=== PATIENT | female | born 1945 | race Caucasian/White ===

== ENCOUNTER → 2019-11-19 | Outpatient (CLI) | payer MEDICARE | END | disposition home or self-care (01) | LOC: LAB 18:07 → LAB SHORT 18:07 | DX: R30.0 Dysuria (principal) | CPT/HCPCS: 87077; 87086; 87186 ==

== ENCOUNTER 2019-12-22 08:05 | Inpatient (IN) | payer MEDICARE ==
[~2019-12-22] VITALS: Ht 170.2 cm; Wt 51.3 kg
[2019-12-22] MEDS ORDERED: PRAVASTATIN SOD10 M2 PO (08:29)
[2019-12-22] MEDS ORDERED: Glucophage 850850 MG PO (08:29)
[2019-12-22 08:41] LABS: BASOPHILS ABSOLUTE AUTO 0.06 K/mm3 (0.00-0.23); BASOPHILS PERCENT AUTO 0 % (0-2); EOSINOPHILS ABSOLUTE AUTO 0.04 K/mm3 (0.00-0.68); EOSINOPHILS PERCENT AUTO 0 % (0-6); Hemoglobin 8.6 g/dL (11.5-16.0); IMMATURE GRAN ABSOLUTE AUTO 0.13 K/mm3 (0.00-0.10); IMMATURE GRAN PERCENT AUTO 1 % (0-1); LYMPHOCYTES ABSOLUTE AUTO 0.82 K/mm3 (0.84-5.20); LYMPHOCYTES PERCENT AUTO 5 % (21-46); MONOCYTES PERCENT AUTO 4 % (4-13); Mean Corpuscular HGB 27.8 pg (26.0-34.0); Mean Corpuscular HGB Conc 31.9 g/dL (31.5-36.5); Mean Corpuscular Volume 87 fL (80-100); Mean Platelet Volume 9.1 fL (9.1-12.4); NEUTROPHILS ABSOLUTE AUTO 14.07 K/mm3 (1.96-9.15); NEUTROPHILS PERCENT AUTO 89 % (41-73); Platelet Count 457 K/mm3 (150-400); RDW Coefficient Variation 13.8 % (11.7-14.2); RDW Standard Deviation 44.2 fL (35.1-46.3); Red Blood Cell Count 3.09 M/mm3 (3.80-5.20); White Blood Cell Count 15.82 K/mm3 (4.00-11.30)
[2019-12-22 09:04] LABS: Source, Urine Catheter
[2019-12-22 09:05] LABS: Troponin I <0.015 ng/mL (0.000-0.040)
[2019-12-22 09:06] LABS: Alanine Aminotransfer (ALT/SGP 12 U/L (12-78); Albumin, Blood 2.9 g/dL (3.4-5.0); Albumin/Globulin Ratio 0.8 (0.8-1.8); Alk Phos 64 U/L (50-136); Anion Gap 13 mmol/L (6-16); Aspartate Aminotrans (AST/SGOT 12 U/L (12-37); Bilirubin, Total 1.1 mg/dL (0.1-1.0); Blood Urea Nitrogen 63 mg/dL (8-24); Bun/Creatinine Ratio 11.8 (12.0-20.0); CO2, Blood 19 mmol/L (21-32); Chloride, Blood 102 mmol/L (98-108); Creatinine, Blood 5.32 mg/dL (0.40-1.00); Globulin, Blood 3.7 g/dL (2.2-4.0); Glomerular Filtration Rate 8 (60-); Glucose, Blood 171 mg/dL (70-99); Potassium, Blood 4.2 mmol/L (3.5-5.5); Sodium, Blood 134 mmol/L (136-145); Total Protein, Blood 6.6 g/dL (6.4-8.2)
[2019-12-22 09:09] LABS: Bilirubin, Urine Neg (Neg); Blood, Urine 4+ (Neg); Glucose Qualitative, Urine Neg (Neg); Ketones, Urine 1+ (Neg); Leukocyte Esterase, Urine 3+ (Neg); Nitrite, Urine Neg (Neg); Protein, Urine 3+ (Neg); Urobilinogen, Urine NORM (Normal); pH, Urine 6.5 (5.0-8.0)
[2019-12-22 09:20] LABS: Appearance, Urine Turbid (Clear); Color, Urine Yellow (P-Yellow)
[2019-12-22 09:26] LABS: White Blood Cells, Urine TNTC /hpf (0-5)
[2019-12-22 09:27] LABS: Bacteria Mod /hpf; Squamous Epithelial Cells Not Seen /hpf (Few)
[2019-12-22 12:14] LABS: Adenovirus F 40/41 Not Detected (NOT DETECT); Astrovirus Not Detected (NOT DETECT); Campylobacter Sp Not Detected (NOT DETECT); Cryptosporidium Not Detected (NOT DETECT); Cyclospora Cayetanensis Not Detected (NOT DETECT); E. Coli O157 Not Detected (NOT DETECT); Entamoeba Histolytica Not Detected (NOT DETECT); Enteroaggregative E. coli-EAEC Not Detected (NOT DETECT); Enteropathogenic E. coli-EPEC Not Detected (NOT DETECT); Enterotoxigenic E. coli-ETEC Not Detected (NOT DETECT); Giardia Lamblia Not Detected (NOT DETECT); Norovirus GI/GII Not Detected (NOT DETECT); Plesiomonas Shigelloides Not Detected (NOT DETECT); Rotavirus A Not Detected (NOT DETECT); Salmonella Sp Not Detected (NOT DETECT); Sapovirus Not Detected (NOT DETECT); Shiga Toxin-prod E. coli-STEC Not Detected (NOT DETECT); Shigella/Enteroin E. coli-EIEC Not Detected (NOT DETECT); Vibrio Cholerae Not Detected (NOT DETECT); Vibrio Sp Not Detected (NOT DETECT); Yersinia Enterocolitica Not Detected (NOT DETECT)
[2019-12-22 12:21] LABS: Magnesium, Blood 1.7 mg/dL (1.6-2.4); Phosphorus, Blood 3.7 mg/dL (2.5-4.9); Uric Acid, Blood 9.6 mg/dL (2.6-6.0)
[2019-12-22 12:27] LABS: IMMATURE RETIC FRACTION 10.6 % (2.3-16.0); RETIC HGB EQUIVALENT 30.7 pg (28.20-36.60); RETICULOCYTE ABSOLUTE 0.0282 M/mm3 (0.0200-0.1100); RETICULOCYTE COUNT PERCENT 0.91 % (0.50-2.50)
[2019-12-22 13:06] LABS: Creatinine, Urine Random 30.7 mg/dL (27.00-270.00)
--- NOTE | 2019-12-22 16:55 | NUR ---
NEW ER ADMIT THIS AFTERNOON. SHE IS A/O X4, I ASSIST/SBA TO BED. GAIT WEAK. SHE IS PALE, APPEARS FATIGUED. SHE IS SOMEWHAT AGITATED/DISTAUGHT R/T RESTLESS LEGS, STATE HX OF, STATE ATIVAN IN ER INEFFECTIVE. PRN TYLENOL GIVEN. SCDS PLACED. SHE SEEMS TO HAVE RELIEF. DR REEVES NOTIFIED, STATE PROBABLY R/T DEHYDRATION, ORDER PRN SINEMET. DX NILESH, RENAL CONSULT CALLED TO DR PRASAD ANS SERV. GFR 8. NS INFUSION STARTED/ORDER. TELE PLACED, NSR @ 81/MX. ORDER CT ABD/PELVIS, COMPLETED. FLUIDS PROVIDED, SHE STATE NO APPETITE, SHE HAD SM AMT EMESIS SHORTLY AFTER ARRIVAL, PRN ZOFRAN GIVEN. PT RESTING QUIETLY/SLEEPING @ THIS TIME. VSS.
[2019-12-22 17:11] LABS: Hematocrit 29.8 % (33.0-51.0); Hemoglobin 9.5 g/dL (11.5-16.0)
[2019-12-22 17:33] LABS: Bun/Creatinine Ratio 11.8 (12.0-20.0); Creatinine, Blood 5.33 mg/dL (0.40-1.00); Potassium, Blood 4.3 mmol/L (3.5-5.5)
[2019-12-22 23:06] LABS: Hematocrit 29.2 % (33.0-51.0); Hemoglobin 9.3 g/dL (11.5-16.0)
[2019-12-23 04:52] LABS: BASOPHILS ABSOLUTE AUTO 0.07 K/mm3 (0.00-0.23); BASOPHILS PERCENT AUTO 0 % (0-2); EOSINOPHILS PERCENT AUTO 0 % (0-6); Hematocrit 29.7 % (33.0-51.0); Hemoglobin 9.3 g/dL (11.5-16.0); IMMATURE GRAN ABSOLUTE AUTO 0.15 K/mm3 (0.00-0.10); IMMATURE GRAN PERCENT AUTO 1 % (0-1); LYMPHOCYTES ABSOLUTE AUTO 1.04 K/mm3 (0.84-5.20); LYMPHOCYTES PERCENT AUTO 6 % (21-46); MONOCYTES ABSOLUTE AUTO 1.08 K/mm3 (0.16-1.47); MONOCYTES PERCENT AUTO 6 % (4-13); Mean Corpuscular HGB 27.8 pg (26.0-34.0); Mean Corpuscular HGB Conc 31.3 g/dL (31.5-36.5); Mean Corpuscular Volume 89 fL (80-100); Mean Platelet Volume 9.2 fL (9.1-12.4); NEUTROPHILS ABSOLUTE AUTO 15.32 K/mm3 (1.96-9.15); NEUTROPHILS PERCENT AUTO 87 % (41-73); Platelet Count 488 K/mm3 (150-400); RDW Coefficient Variation 14.1 % (11.7-14.2); RDW Standard Deviation 45.9 fL (35.1-46.3); Red Blood Cell Count 3.35 M/mm3 (3.80-5.20); White Blood Cell Count 17.66 K/mm3 (4.00-11.30)
[2019-12-23 05:13] LABS: Albumin, Blood 2.2 g/dL (3.4-5.0); Albumin/Globulin Ratio 0.6 (0.8-1.8); Bilirubin, Total 1.1 mg/dL (0.1-1.0); Bun/Creatinine Ratio 10.4 (12.0-20.0); Calcium, Blood 8.7 mg/dL (8.5-10.1); Creatinine, Blood 6.17 mg/dL (0.40-1.00); Globulin, Blood 3.7 g/dL (2.2-4.0); Magnesium, Blood 1.8 mg/dL (1.6-2.4); Phosphorus, Blood 5.7 mg/dL (2.5-4.9); Potassium, Blood 4.6 mmol/L (3.5-5.5); Total Protein, Blood 5.9 g/dL (6.4-8.2)
--- NOTE | 2019-12-23 06:33 | NUR ---
SHIFT SUMMARY PT IS A 74 Y/O FEMALE, ADMITTED FOR NILESH AND UTI. SHE IS A&O X 4, PALE-APPEARING. SHE IS ABLE TO AMBULATE WITH ONE PERSON ASSIST. NO COMPLAINTS OF PAIN, NAUSEA OR SOB. VITAL SIGNS STABLE. TELE SHOWED NSR IN THE 80S. PT HAD POSITIVE BLOOD CULTURES DURING THE NIGHT, GRAM NEG BACILLI. PER THE PHARMACIST RENATE, PT'S SCHEDULED ROCEPHIN "SHOULD" COVER. THE HOSPITALIST DR HOANG WAS NOTIFIED, AND THE TIME FOR PT'S IV ANTIBIOTICS WAS MOVED UP TO A FIRST DOSE NOW, AND FURTHER DOSES AT 0900. NO OTHER ACUTE CHANGES IN PT CONDITION NOTED. WILL CONTINUE TO MONITOR AND TREAT PER EMAR UNTIL HAND OFF TO DAY SHIFT RN.
--- NOTE | 2019-12-23 16:05 | NUR ---
PT IS A/OX3, PLEASANT AND COOPERATIVE, THE PT IS UP WITH MINIMAL ASSIST TO THE CHAIR AND BSC, THE PT APPEARS TO BE BREATHING EASILY ON RA, THE PT DENIED ANY PAIN T/O THE SHIFT, THE PT WORKED WITH BOTH THE PHYSICAL AND OCCUPATIONAL THERAPIST TODAY, PT SLEPT FOR MOST OF THE DAY, CALL LIGHT IN REACH, WILL CONTINUE TO MONITOR AND ASSESS FOR CHANGES
--- NOTE | 2019-12-24 00:17 | NUR ---
IV ACCESS PT LOST IV ACCESS AROUND 2029, SEVERAL ATTEMPTS WERE MADE BY POSTULANT TREVOR PAIZ TO GAIN IV ACCESS WITHOUT SUCCESS. PT HAS DECLINED FOR ANY FURTHER ATTEMPTS AT IV PLACEMENT AT THIS TIME. UNABLE TO INFUSE MAINTENANCE FLUIDS. BOTH POSTULANT'S ARE AWARE. PT SCHEDULED FOR NEPHROSTOMY PLACMENT TOMORROW.
--- NOTE | 2019-12-24 04:56 | NUR ---
SHIFT SUMMARY PT HAS RESTED OFF AND ON THIS SHIFT. PT REPORTS THAT HER APPETITE IS IMPROVING SOME. SHE STILL HAS INTERMITTENT EPISODES OF NAUSEA. PT HAS VOIDED ABOUT 200 CC THIS SHIFT. PT HAS DENIED ANY PAIN. PLAN IS FOR NEPHROSTOMY PLACEMENT TODAY. PT HAS BEEN NPO PER ORDERS. PT REMOVED HER IV BY MISTAKE THIS SHIFT. IV ACCESS WAS ATTEMPTED BY PLATING OPERATOR WITHOUT SUCCESS. PT DECLINED ANYMORE ATTEMPTS FOR THE NIGHT. WILL NOTIFY DAY RN FOR CONTINUED FOLLOW UP. POSTIVE BLOOD CX RESULTS CALLED TO THIS RN THIS SHIFT. WAS NOTIFIED WITH NO ADDITIONAL ORDERS PT IS CURRENLTY ON ROCEPHIN. THERE HAVE BEEN OTHER SET OF BLOOD CX DRAWN THOSE RESULTS ARE STILL PENDING AT THIS TIME. NO OTHER CHANGES TO REPORT. BED IN LOWEST POSITION, CALL LIGHT WITHIN REACH. WILL CONTINUE TO MONITOR AND REPORT TO ONCOMING RN.
[2019-12-24 07:16] LABS: BASOPHILS ABSOLUTE AUTO 0.05 K/mm3 (0.00-0.23); BASOPHILS PERCENT AUTO 0 % (0-2); EOSINOPHILS ABSOLUTE AUTO 0.01 K/mm3 (0.00-0.68); EOSINOPHILS PERCENT AUTO 0 % (0-6); Hematocrit 27.2 % (33.0-51.0); Hemoglobin 8.5 g/dL (11.5-16.0); IMMATURE GRAN ABSOLUTE AUTO 0.12 K/mm3 (0.00-0.10); IMMATURE GRAN PERCENT AUTO 1 % (0-1); LYMPHOCYTES ABSOLUTE AUTO 0.83 K/mm3 (0.84-5.20); LYMPHOCYTES PERCENT AUTO 5 % (21-46); MONOCYTES ABSOLUTE AUTO 1.04 K/mm3 (0.16-1.47); MONOCYTES PERCENT AUTO 6 % (4-13); Mean Corpuscular HGB 27.2 pg (26.0-34.0); Mean Corpuscular HGB Conc 31.3 g/dL (31.5-36.5); Mean Corpuscular Volume 87 fL (80-100); Mean Platelet Volume 8.9 fL (9.1-12.4); NEUTROPHILS ABSOLUTE AUTO 15.94 K/mm3 (1.96-9.15); NEUTROPHILS PERCENT AUTO 89 % (41-73); Platelet Count 422 K/mm3 (150-400); RDW Coefficient Variation 14.4 % (11.7-14.2); RDW Standard Deviation 45.2 fL (35.1-46.3); Red Blood Cell Count 3.13 M/mm3 (3.80-5.20); White Blood Cell Count 17.99 K/mm3 (4.00-11.30)
[2019-12-24 07:32] LABS: Albumin, Blood 2.3 g/dL (3.4-5.0); Anion Gap 10 mmol/L (6-16); Blood Urea Nitrogen 70 mg/dL (8-24); Bun/Creatinine Ratio 9.6 (12.0-20.0); CO2, Blood 20 mmol/L (21-32); Calcium, Blood 8.9 mg/dL (8.5-10.1); Chloride, Blood 107 mmol/L (98-108); Creatinine, Blood 7.26 mg/dL (0.40-1.00); Glomerular Filtration Rate 6 (60-); Glucose, Blood 210 mg/dL (70-99); Phosphorus, Blood 4.3 mg/dL (2.5-4.9); Potassium, Blood 4.4 mmol/L (3.5-5.5); Sodium, Blood 137 mmol/L (136-145)
--- NOTE | 2019-12-24 18:28 | NUR ---
PT DOWN FOR NEPHROSTOMY WITH DR NAVAS AT 1130 AND RETURNED AT 1330. ALERT AND ORIENTED. VSS, DENIED ANY PAIN. RESET IVF AND PT TOLERATING ICE. HAVING NAUSEA AFTER ABOUT 30 MIN OF ARRIVAL TO ROOM. MEDICATED WITH ZOFRAN. NEPH TUBE MARKED BLACK SHARPEE, 25CM IESHA SHOWING AT EDGE OF LOWER BANDAGE. REINFORCED WITH MEFIX TAPE. DIAINING PINK TINGED SEMI OPAQUE FLUID. SAFETY PINNED TO GOUN AND GRAVITY OFF BED FOR DRAINAGE.
--- NOTE | 2019-12-24 18:32 | NUR ---
SUMMARY- PT A/O X4- USES CALL LIGHT APPROPRIATELY. HAD NEPHROSTOMY DOUBLE JJ STENT PLACED TODAY WITH DR NAVAS. HAS EATEN VERY LITTE, AND ONLY SIPS OF CLEARS SINCE PROCEDURE. HAS HAD 2 GELATINOUS BM'S TODAY, THE FIRST IN A WEEK ACCORDING TO PT. PT'S NEPH DIAINED 2OOML PINK TINGED, SEMI OPAQUE FLUID. HAVING SEVERE RESTLESS LEG SYNDROME (CHRONIC CONDITION) OTHERWISE DENIES PAIN. MEDICATED WITH SINIMET FOR RLS. HAS IVF INFUSING AT 50ML HR. PT GETS UP FREQ TO BSC, SBA TO VOID, ONLY VOIDS SCANT AMOUNTS OF NONE AT ALL. GETS UP MOSTLTY TO RELEIVE RLS. DR AUSTIN SALAS HERE TO MARLOAL PT 1800- PLAN FOR PELVIC US. WILL REPORT TO ANNE ADAMES
--- NOTE | 2019-12-25 04:13 | NUR ---
SHIFT SUMMARY ASSUMED CARE OF PT AT 1900. PT IS A/OX4, DENIES N/T IN EXTREMITIES, PT IS NONCOMPLIANT WITH SOME MEDICATIONS. HEART SOUNDS REGULAR, TELE SHOWS SINUS @ 83, DENIES CP AT THIS TIME. LUNG SOUNDS CLEAR BUT DIMINISHED, DENIES SOB AT THIS TIME. PT SKIN IS VERY PALE. PT C/O HAVING TO PEE BUT NO URINE IS PRODUCED. PT IS A 1P SBA TO COMMODE, BUT IS VERY WEAK. C/O NEASEA, PHENERGEN ADMINISTERED, PT DIDNT START FEELING BETTER UNTIL 0000. NEPHROSTOMY DRAINING WITH GRAVITY, URINE TEA COLORED BUT CLEAR, OSTOMY COVERED WITH DRESSING. PT C/O RETLESS LEG SYNDROME, HER LEGS WILL KICK WILDLY FOR A FEW SECONDS AND THEN STOP. NO ACUTE EVENTES DURING THE NIGHT, PT SLEPT MOST OF THE NIGHT. CALL LIGHT IN REACH, BED IN LOWEST POSTION, WILL CONTINUE TO MONITOR UNTIL DAYSHIFT NURSE ARRIVES.
[2019-12-25 05:19] LABS: BASOPHILS ABSOLUTE AUTO 0.06 K/mm3 (0.00-0.23); BASOPHILS PERCENT AUTO 0 % (0-2); EOSINOPHILS PERCENT AUTO 0 % (0-6); Hematocrit 25.7 % (33.0-51.0); Hemoglobin 8.2 g/dL (11.5-16.0); IMMATURE GRAN ABSOLUTE AUTO 0.21 K/mm3 (0.00-0.10); IMMATURE GRAN PERCENT AUTO 1 % (0-1); LYMPHOCYTES ABSOLUTE AUTO 0.71 K/mm3 (0.84-5.20); LYMPHOCYTES PERCENT AUTO 4 % (21-46); MONOCYTES PERCENT AUTO 7 % (4-13); Mean Corpuscular HGB 27.8 pg (26.0-34.0); Mean Corpuscular HGB Conc 31.9 g/dL (31.5-36.5); Mean Corpuscular Volume 87 fL (80-100); Mean Platelet Volume 8.9 fL (9.1-12.4); NEUTROPHILS ABSOLUTE AUTO 14.69 K/mm3 (1.96-9.15); NEUTROPHILS PERCENT AUTO 88 % (41-73); Platelet Count 377 K/mm3 (150-400); RDW Coefficient Variation 14.5 % (11.7-14.2); RDW Standard Deviation 46.2 fL (35.1-46.3); Red Blood Cell Count 2.95 M/mm3 (3.80-5.20); White Blood Cell Count 16.77 K/mm3 (4.00-11.30)
[2019-12-25 05:42] LABS: Albumin, Blood 2.1 g/dL (3.4-5.0); Anion Gap 10 mmol/L (6-16); Blood Urea Nitrogen 71 mg/dL (8-24); Bun/Creatinine Ratio 9.6 (12.0-20.0); CO2, Blood 20 mmol/L (21-32); Calcium, Blood 8.4 mg/dL (8.5-10.1); Chloride, Blood 108 mmol/L (98-108); Creatinine, Blood 7.37 mg/dL (0.40-1.00); Glomerular Filtration Rate 6 (60-); Glucose, Blood 180 mg/dL (70-99); Phosphorus, Blood 4.3 mg/dL (2.5-4.9); Potassium, Blood 4.4 mmol/L (3.5-5.5); Sodium, Blood 138 mmol/L (136-145)
[2019-12-25 06:08] LABS: HBSAG SCREEN Negative (Negative); HEP A AB, IGM Negative (Negative); HEP B CORE AB, IGM Negative (Negative); HEP C VIRUS AB <0.1 (0.0-0.9)
[2019-12-25 12:08] LABS: A/G RATIO 1.2 (0.7-1.7); ALBUMIN 2.8 g/dL (2.9-4.4); ALPHA-1-GLOBULIN 0.4 g/dL (0.0-0.4); ALPHA-2-GLOBULIN 0.7 g/dL (0.4-1.0); BETA GLOBULIN 0.6 g/dL (0.7-1.3); GAMMA GLOBULIN 0.7 g/dL (0.4-1.8); GLOBULIN, TOTAL 2.4 g/dL (2.2-3.9); IMMUNOGLOBULIN A, QN, SERUM 209 mg/dL (64-422); IMMUNOGLOBULIN G, QN, SERUM 863 mg/dL (586-1602); IMMUNOGLOBULIN M, QN, SERUM 45 mg/dL (26-217); M-SPIKE Not Observed g/dL (Not Observed); PROTEIN, TOTAL, SERUM 5.2 g/dL (6.0-8.5)
--- NOTE | 2019-12-25 13:11 | NUR ---
Spiritual care visit conducted. Patient is lying in bed and resting but easily awakens to the sound of her name. Patient immediately tells me that she has extreme fatigue and that she has discomfort. Patient then tells me her medical history starting about 3 months ago until the present. She explains about her spiritual beliefs, her family unit complications and her inner turmoil. I listen empathically, reinforce helpful attitudes and practices, normalize patient's experience and provide companionship, pastoral anger control counselor and prayer. Patient responds well and shows signs of catharsis and increased peace. I will continue to remain available to patient and family.
--- NOTE | 2019-12-25 17:13 | NUR ---
SHIFT SUMMARY PT RESTING QUIETLY AT START OF SHIFT. WOKE EASILY FOR CARE. PT TO RADIOLOGY AFTER BREAKFAST THIS AM. THEN SLEPT OFF AND ON UNTIL THE AFTERNOON. DR NAVAS TO SEE PT BEFORE LUNCH. CONSENT SIGNED FOR PERMA CATH PLACEMENT THIS AFTERNOON. PT MADE NPO AT THAT TIME. IVF'S INFUSING PER EMAR. PT WOKE THIS AFTERNOON VERY AGITATED AND IRRITABLE, YELLING OUT THAT SHE WANTED OUT OF HERE. PT NO LONGER WANTED TO HAVE PROCEDURE OR DIALYSIS AND JUST WANTED TO GO HOME. DR MERRITT NOTIFIED OF PT'S DEMANDS. ALCOHOLISM WORKER, SAIRA, WENT IN TO TALK WITH PT AND EDU PT ON CURRENT STATUS W/O DIALYSIS. PT THEN THOUGHT ABOUT THE OPTIONS FOR A WHILE AND CHRG RN RETURNED TO DISCUSS PT'S DECISION. PT AGREED TO HAVE PROCEDURE TO FOLLOW THRU WITH DIALYSIS AT THIS TIME. PT SEEMS TO HAVE SOME DEMENTIA AT TIMES. PT CHANGES HER MIND FREQUENTLY AT TIMES WHEN ASKED QUESTIONS ABOUT CARE OR ASSESSMENTS. PT SEEMS TO UNDERSTAND INFORMATION GIVEN AT THE TIME, BUT SOON FORGETS WHAT IS DISCUSSED. PT REPORTED THAT SHE LIVES ALONE AND ONLY HAS A SISTER AND A NEICE, WHICH BOTH LIVE OUT OF STATE. PT REPORTED THAT HER FRIENDS ARE NOT ANSWERING THE PHONE AND DO NOT KNOW THAT SHE IS IN THE HOSPITAL. PT WAS TO HAVE HAD DIALYSIS AFTER PERMA CATH PLACEMENT TODAY, BUT D/T DELAY OF PROCEDURE, PNEUMATIC TUBE REPAIRER NOTIFIED DR PRASAD. PNEUMATIC TUBE REPAIRER REPORTED THAT PT TO HAVE DIALYSIS TOMORROW, PER DR PRASAD. PT IS CURRENTLY RESTING QUIETLY AWAKE. DENIED FURTHER NEEDS. BED ALARM ON FOR SAFETY, D/T PT BEING UNSTEADY WHEN UP, AND PT NOT CALLING FOR ASSIST. CALL LT IN REACH.
--- NOTE | 2019-12-25 18:14 | NUR ---
DIALYSIS INFORMED BY DR PRASAD THAT PT WOULD BE GETTING A PERMA CATH AND REQUIRED DIALYSIS. THE FLOOR NURSE CALLED AFTER WE HAD SETUP THE MACHINE AND TOLD US THAT THE PT WASN'T SURE IF SHE WANTED TO DO DIALYSIS. MEDICAL FLOOR STAFF TALKED TO HER TO SEE IF SHE COULD MAKE A DECISION. SHE DECIDED TO GO AHEAD WITH THE PROCEDURE. DISCUSSED WITH DR PRASAD THE POSSIBILTY OF DOING THE TX TOMORROW. SHE SAID YES.
--- NOTE | 2019-12-26 05:04 | NUR ---
SHIFT SUMMARY ADMITTED FOR NILESH. DNR CODE. PERMACATH PLACED IN RT CHEST WALL BY CONSULT ELOISE LAST NIGHT. HAS RECENT RT NEPHROSTOMY. CONSULT OSMAR IS FOLLOWING WELL. ALSO HAS A DOUBLE J URETER STENT. GFR WAS ONLY 6 AT LAST LAB DRAW, AWAITING MORNING LABS. SHE CAN ADVANCE TOLERATED TO A RENAL DIET. NO COMPLAINTS OF NAUSEA BUT SEEMINGLY NO APPETITE YET. SHE LIVES ALONE. SHE IS PALE AND WEAK, UNSTEADY ON HER FEET, 1 ASSIST W/FWW & GAITBELT TO BSC UNTIL STRONGER. RA, Q4 NEURO CHECKS, POST OP VITALS COMPLETED ORDERED. SHE DOES REFUSE SOME CARE AND INTERVENTIONS, LABILE MOODS, HIGH RISK TO LEAVE AMA. TELEMETRY IS MONITORING: NSR @ 90 BPM. SHE ALSO HAS A UTI. HX: CKD, DM2, HYPERLIPIDEMIA, RESTLESS LEGS SYNDROME, URETHRAL STRICTURE.
[2019-12-26 05:19] LABS: BASOPHILS ABSOLUTE AUTO 0.05 K/mm3 (0.00-0.23); BASOPHILS PERCENT AUTO 0 % (0-2); EOSINOPHILS ABSOLUTE AUTO 0.02 K/mm3 (0.00-0.68); EOSINOPHILS PERCENT AUTO 0 % (0-6); Hematocrit 24.4 % (33.0-51.0); Hemoglobin 7.9 g/dL (11.5-16.0); IMMATURE GRAN ABSOLUTE AUTO 0.21 K/mm3 (0.00-0.10); IMMATURE GRAN PERCENT AUTO 1 % (0-1); LYMPHOCYTES ABSOLUTE AUTO 0.93 K/mm3 (0.84-5.20); LYMPHOCYTES PERCENT AUTO 6 % (21-46); MONOCYTES ABSOLUTE AUTO 1.18 K/mm3 (0.16-1.47); MONOCYTES PERCENT AUTO 7 % (4-13); Mean Corpuscular HGB 27.8 pg (26.0-34.0); Mean Corpuscular HGB Conc 32.4 g/dL (31.5-36.5); Mean Corpuscular Volume 86 fL (80-100); Mean Platelet Volume 9.1 fL (9.1-12.4); NEUTROPHILS PERCENT AUTO 85 % (41-73); Platelet Count 343 K/mm3 (150-400); RDW Coefficient Variation 14.6 % (11.7-14.2); RDW Standard Deviation 45.7 fL (35.1-46.3); Red Blood Cell Count 2.84 M/mm3 (3.80-5.20); White Blood Cell Count 16.29 K/mm3 (4.00-11.30)
[2019-12-26 05:56] LABS: Anion Gap 9 mmol/L (6-16); Blood Urea Nitrogen 64 mg/dL (8-24); CO2, Blood 20 mmol/L (21-32); Calcium, Blood 8.5 mg/dL (8.5-10.1); Chloride, Blood 108 mmol/L (98-108); Creatinine, Blood 7.13 mg/dL (0.40-1.00); Glomerular Filtration Rate 6 (60-); Glucose, Blood 164 mg/dL (70-99); Phosphorus, Blood 3.4 mg/dL (2.5-4.9); Potassium, Blood 3.7 mmol/L (3.5-5.5); Sodium, Blood 137 mmol/L (136-145)
--- NOTE | 2019-12-26 17:41 | NUR ---
SHIFT SUMMARY PT UP TO CHAIR FOR BREAKFAST AND LUNCH. DOWN TO DIALYIS IN HER BED AND TOLERATED WITH NO PROBLEM. 1 PERSON ASSIST WITH TRANSFERS USING FWW. HAS BEEN PLEASANT AND ACCOMEDATING WITH CARE. EATING WELL TODAY AND REPORTS A GOOD APPETITE. STATES ITS SO MUCH BETTER THAN LIQUIDS. NAPPING THIS AFTERNOON. DOES REPORT SHE CONTINUES TO HAVE JUMPY LEGS THAT CAN BE DISTURBING. SINEMET GIVEN.
[2019-12-27 04:51] LABS: BASOPHILS ABSOLUTE AUTO 0.03 K/mm3 (0.00-0.23); BASOPHILS PERCENT AUTO 0 % (0-2); EOSINOPHILS ABSOLUTE AUTO 0.03 K/mm3 (0.00-0.68); EOSINOPHILS PERCENT AUTO 0 % (0-6); Hematocrit 24.6 % (33.0-51.0); Hemoglobin 7.8 g/dL (11.5-16.0); IMMATURE GRAN ABSOLUTE AUTO 0.16 K/mm3 (0.00-0.10); IMMATURE GRAN PERCENT AUTO 1 % (0-1); LYMPHOCYTES PERCENT AUTO 9 % (21-46); MONOCYTES ABSOLUTE AUTO 1.12 K/mm3 (0.16-1.47); MONOCYTES PERCENT AUTO 10 % (4-13); Mean Corpuscular HGB 27.4 pg (26.0-34.0); Mean Corpuscular HGB Conc 31.7 g/dL (31.5-36.5); Mean Corpuscular Volume 86 fL (80-100); Mean Platelet Volume 9.4 fL (9.1-12.4); NEUTROPHILS ABSOLUTE AUTO 9.13 K/mm3 (1.96-9.15); NEUTROPHILS PERCENT AUTO 80 % (41-73); Platelet Count 364 K/mm3 (150-400); RDW Coefficient Variation 14.6 % (11.7-14.2); RDW Standard Deviation 45.2 fL (35.1-46.3); Red Blood Cell Count 2.85 M/mm3 (3.80-5.20); White Blood Cell Count 11.47 K/mm3 (4.00-11.30)
[2019-12-27 05:16] LABS: Anion Gap 6 mmol/L (6-16); Blood Urea Nitrogen 39 mg/dL (8-24); Bun/Creatinine Ratio 9.7 (12.0-20.0); CO2, Blood 30 mmol/L (21-32); Calcium, Blood 8.4 mg/dL (8.5-10.1); Chloride, Blood 101 mmol/L (98-108); Creatinine, Blood 4.04 mg/dL (0.40-1.00); Glomerular Filtration Rate 12 (60-); Glucose, Blood 253 mg/dL (70-99); Phosphorus, Blood 2.2 mg/dL (2.5-4.9); Potassium, Blood 3.6 mmol/L (3.5-5.5); Sodium, Blood 137 mmol/L (136-145)
--- NOTE | 2019-12-27 18:22 | NUR ---
SHIFT SUMMARY PT OUT TO DIALYSIS THIS MORNING. TOLERATED BUT REPORTED LEG CRAMPS WHILE LAYING IN BED. DID SAY THIS AFTERNOON THAT LEG CRAMPS EASED UP WHILE SITTING UP FOR A WHILE BUT RETURNED. SPOKE WITH MD ABOUT PTS CONCERN. HAS REMAINED PLEASANT BUT SAYS SHE JUST CAN'T HANDLE IT MUCH LONGER WITH THE RESTLESS LEGS. 1 PERSON ASSIST WITH FWW AND SEEMS STRONGER TODAY THAN YESTERDAY. BECAME NAUSEATED AFTER EATING BEEF ON HER LUNCH TRAY. STATES SHE CAN'T EAT BEEF OR PORK. IS FORGETFUL. THIS MORNING I SPOKE WITH HER ABOUT GOING TO DIALYSIS YESTERDAY AND SHE COULDN'T REMEMBER IT.
[2019-12-28 05:13] LABS: Albumin, Blood 2.1 g/dL (3.4-5.0); Anion Gap 5 mmol/L (6-16); Blood Urea Nitrogen 23 mg/dL (8-24); Bun/Creatinine Ratio 8.4 (12.0-20.0); CO2, Blood 34 mmol/L (21-32); Calcium, Blood 8.4 mg/dL (8.5-10.1); Chloride, Blood 99 mmol/L (98-108); Creatinine, Blood 2.73 mg/dL (0.40-1.00); Glomerular Filtration Rate 18 (60-); Glucose, Blood 209 mg/dL (70-99); Phosphorus, Blood 2.4 mg/dL (2.5-4.9); Potassium, Blood 3.6 mmol/L (3.5-5.5); Sodium, Blood 138 mmol/L (136-145)
[2019-12-28 05:18] LABS: Hematocrit 25.3 % (33.0-51.0); Hemoglobin 7.9 g/dL (11.5-16.0); Mean Corpuscular HGB 27.5 pg (26.0-34.0); Mean Corpuscular HGB Conc 31.2 g/dL (31.5-36.5); Mean Corpuscular Volume 88 fL (80-100); Mean Platelet Volume 8.7 fL (9.1-12.4); Platelet Count 334 K/mm3 (150-400); RDW Coefficient Variation 14.2 % (11.7-14.2); RDW Standard Deviation 45.3 fL (35.1-46.3); Red Blood Cell Count 2.87 M/mm3 (3.80-5.20); White Blood Cell Count 10.13 K/mm3 (4.00-11.30)
--- NOTE | 2019-12-28 06:14 | NUR ---
SHIFT SUMMARY: PATIENT IS A&OX3, NO REPORTS OF PAIN OR DISCOMFORT. NAUSEA AT START OF SHIFT RESOLVED WITH OUT INTERVENTION. VS ARE STABLE, GAIT IS STEADY WITH WALKER AND STAND BY ASSIST, TOLERATING DIET WELL. BED ALARM IS ON FOR SAFETY AND CALL RICHARD IS WITHIN REACH.
--- NOTE | 2019-12-28 11:44 | NUR ---
Spiritual care visit Conducted. Patient is sitting on a chair and alert. Patient immediately tells me how much better she feels and that she should be DC soon. Patient shares about her friends and their support during her hospital stay and about the emotional/mental struggle the medical issues have caused. Patient is very thankful for how far she has come and feels that she will bounce back quickly and that she will not have to be at a rehab facility long. I listen empathically and praovide companionship and prayer. Patient responds well and voices appreciation for the support from spiritual care.
--- NOTE | 2019-12-28 19:35 | NUR ---
SHIFT SUMMARY- PT HAS HAD NO ACUTE CHANGES SINCE THE START OF THE SHIFT. PT DENIES THE NEED FOR NAUSEA OR PAIN MEDICATION. PT ATE WELL FOR BREAKFAST AND DINNER AND HAD A SMALL SNACK AT LUNCH D/T PENDING MRI THAT REQUIRES PT TO BE NPO (EXCEPT FOR WATER). CALLED TECH AND OK TO GIVE THE PT A SNACK, PT WAS IN A PANICK AT THE TIME AND STATED SHE FELT WEAK AND FAINT. BG WAS 216 AT THAT TIME. PT THEN BEGAN HAVING JERKING LEG MOVEMENTS AND BECAME DISTRAUGHT STATING "SHE JUST CAN'T STAND THIS RESTLESS LEG." MEDICATED WITH CARB/LEVO PER EMAR. PT WALKED A FULL [place] IN THE UNIT 3 TIMES THIS SHIFT. SHE WORKED WITH PHYSICAL AND OCCUPATIONAL THERAPIES. PT WAS VISITED BY SPIRITUAL CARE WELL. PASSED ALL ON IN REPORT TO NIGHT RN. PT CURRENTLY WALKING THE UNIT ON HER SECOND LAP AT THIS TIME WITH THE NIGHT RN. UROSTOMY EMPTIED 350 OF CLEAR YELLOW URINE AT SHIFT CHANGE.
--- NOTE | 2019-12-29 06:14 | NUR ---
SHIFT SUMMARY: PATIENT IS A&OX4, REQUESTING AMBULATION IN LILLY MULTIPLE TIMES THIS SHIFT. PATIENT HAS A STEADY GAIT AND IS A STNAD BY ASSIST WITH A FWW, ABLE TO DO 3 LAPS OF THE UNIT EACH TIME AMBULATING. BP IS ELEVATED AT 0300. RECHECK WAS MORE BASELINE, SEE VS. BED ALARM IS CONTINUED FOR FALL PREVENTION. UROSTOMY IS PATENT FPR A CLEAR YELLO URINE, PATINE IS ALSO VOIDING. NO REPORT OF PAIN OR DISCOMFORT
[2019-12-29 06:18] LABS: Albumin, Blood 2.3 g/dL (3.4-5.0); Anion Gap 4 mmol/L (6-16); Blood Urea Nitrogen 39 mg/dL (8-24); Bun/Creatinine Ratio 13.1 (12.0-20.0); CO2, Blood 35 mmol/L (21-32); Calcium, Blood 8.7 mg/dL (8.5-10.1); Chloride, Blood 98 mmol/L (98-108); Creatinine, Blood 2.98 mg/dL (0.40-1.00); Glomerular Filtration Rate 16 (60-); Glucose, Blood 214 mg/dL (70-99); Phosphorus, Blood 2.7 mg/dL (2.5-4.9); Potassium, Blood 3.7 mmol/L (3.5-5.5); Sodium, Blood 137 mmol/L (136-145)
--- NOTE | 2019-12-29 17:31 | NUR ---
SHIFT SUMMARY- PT ALERT AND ORIENTED TO SELF AND SURROUNDINGS. PT HAD DIALYSIS TODAY. PT HAS GOTTEN UP AND WALKED THE UNIT WITH STAFF. PER PHYSICAL THERAPY PT DISCHARGE RECOMENDATION CHANGED FROM SNF TO HOME WITH HOME HEALTH. PT HAS IMPROVED ALOT TODAY. SHE HAD A BOUT OF WHAT SHE REFERS TO "RESTLESS LEGS" IN DIALYSIS AND WAS MEDICATED PER EMAR. RLS MED CHANGED TO BID. PT SEEMS MORE RELAXED AND COMFORTABLE THIS EVENING. PT IS USING THE CALL LIGHT APPROPRIATELY TODAY WELL.
[2019-12-30 04:36] LABS: Hematocrit 23.3 % (33.0-51.0); Hemoglobin 7.2 g/dL (11.5-16.0); Mean Corpuscular HGB 27.4 pg (26.0-34.0); Mean Corpuscular HGB Conc 30.9 g/dL (31.5-36.5); Mean Corpuscular Volume 89 fL (80-100); Mean Platelet Volume 9.3 fL (9.1-12.4); Platelet Count 337 K/mm3 (150-400); RDW Coefficient Variation 14.6 % (11.7-14.2); RDW Standard Deviation 45.4 fL (35.1-46.3); Red Blood Cell Count 2.63 M/mm3 (3.80-5.20); White Blood Cell Count 10.86 K/mm3 (4.00-11.30)
[2019-12-30 04:56] LABS: Albumin, Blood 2.2 g/dL (3.4-5.0); Anion Gap 4 mmol/L (6-16); Blood Urea Nitrogen 33 mg/dL (8-24); Bun/Creatinine Ratio 15.5 (12.0-20.0); CO2, Blood 36 mmol/L (21-32); Calcium, Blood 8.3 mg/dL (8.5-10.1); Chloride, Blood 98 mmol/L (98-108); Creatinine, Blood 2.13 mg/dL (0.40-1.00); Glomerular Filtration Rate 24 (60-); Glucose, Blood 218 mg/dL (70-99); Phosphorus, Blood 2.3 mg/dL (2.5-4.9); Potassium, Blood 3.2 mmol/L (3.5-5.5); Sodium, Blood 138 mmol/L (136-145)
--- NOTE | 2019-12-30 05:16 | NUR ---
12/30/19 0512 HGB= 7.2 AND RN NOTIFIED ON-CALL MD, DR [id number], OF REPORT. SHE STATED TO HAVE DAY SHIFT MD DECIDE IF PT TO GET BLOOD TRANSFUSION. VITALS HAVE BEEN STABLE. PT PALE BUT DENIES ANY DIZZINESS THIS SHIFT. VOIDING AND ALSO HAS RT. NEPHROTOMY TUBE WITH URINE OUTPUT. PT UP TO BATHROOM SEVERAL TIMES THIS SHIFT FOR VOIDING ONLY. NO STOOLS THIS SHIFT.
--- NOTE | 2019-12-30 07:00 | NUR ---
ASSUMED CARE OF PT- PT ALERT AND IN A BAD MOOD AT THE TIME OF SHIFT CHANGE. PT HAD A HEATING PAD UNDER THE LEFT FLANK AND HER FACIAL EXPRESSION SHOWED SHE WAS IN PAIN PT STATED SHE DOESNT HAVE ANY PAIN. PT WAS ANGRY THAT HER BLINDS WERE DAMMAGED (ONE WAS MISSING), PT STATED SHE WAS ANGRY THAT HER TABLE HAD NOT BEEN CLEANED PROPERLY (TABLE WAS CLEARED AND APPEARED TO HAVE BEEN WASHED WELL). PT WAS ANGRY THAT SHE DID NOT KNOW IF PEANUT BUTTER WAS OK FOR HER TO EAT ON HER NEW RENAL DIET AND SHE WAS UPSET THAT THE "HOSPITAL DOESN'T HAVE ANYTHING" THAT SHE CAN EAT AT NIGHT. WASHED THE TABLE WITH CAVI WIPES, MEDICATED PT FOR LEFT FLANK PAIN WITH TYLENOL, SPOKE TO DIETITIAN ABOUT THE PEANUT BUTTER ISSUE, BUSINESS ADMINISTRATION INSTRUCTOR CALLED MAINTINANCE ABOUT THE BLINDS. PT C/O LEFT FLANK PAIN 30 MINUTES AFTER TYLENOL WAS GIVEN BUT HAD DENIED IT BEFORE THAT, HOWEVER HER FACE INDICATED THE PAIN. PT BEGAN THRASHING AROUND AND KICKING HER LEGS STATING "I JUST CAN'T TAKE IT" REFERING TO THE PAIN. THIS HAS BEEN A COMMON OCCURANCE FOR HER WHEN SHE HAS ANY PAIN. SPOKE TO DR HOANG HE IS AWARE.
--- NOTE | 2019-12-30 15:06 | NUR ---
PT WENT TO DIALYSIS AND RETURNED. PT WAS VERY GRACIOUS WITH STAFF STATING THAT SHE WAS 100% PAIN FREE AT THAT TIME. PT WAS EXCITED THAT THE DIETITIAN ORDERED LOW SODIUM PEANUT BUTTER FOR HER FOR LUNCH, SHE WAS SINGING A TUNE SAYING "I GET TO HAVE PEANUT BUTTER." WHEN LUNCH TRAY ARRIVED THE PT WAS DISSAPOINTED THAT IT DID NOT COME ON THE TRAY. CALLED DIETARY, THEY DO NOT HAVE ANY IN STOCK AT THIS TIME. PT WAS VERY DISSAPOINTED BUT UNDERSTANDING.
--- NOTE | 2019-12-30 15:09 | NUR ---
PT HAS HER OWN JAR OF LOW SODIUM PEANUT BUTTER IN HER ROOM. HER FRIEND TITO SENT IT IN YESTERDAY WITH A BAG OF HER TOILETRIES. PT SAYS "THANK TITO!" PT STILL IN A POSSITIVE MOOD AT THIS TIME AND APPOLOGIZED TO STAFF FOR GIVING THE IMPRESSION THAT SHE WAS GOING TO THROW OBJECTS AT THEM.
--- NOTE | 2019-12-30 16:49 | NUR ---
CALLED DR HOANG- PT POC BG WAS 460. ADMINISTERED 10UNITS OF HUMALOG INSULIN AND CALLED DR HOANG PER PROTOCOL. RECIEVED AN ORDER FOR A OT DOSE OF 10 UNITS OF LANTUS NOW. WILL ADMINISTER WHEN THE PEN ARRIVES FROM PHARMACY.
--- NOTE | 2019-12-30 17:59 | NUR ---
SHIFT SUMMARY- PT HAD DIALYSIS TODAY 1500 ML OF FLUID WAS REMOVED AND PT RECIEVED A UNIT OF PRBCS WELL, HGB WAS 7.2. PT PRE MEDICATED PRIOR TO DIALYSIS AND STATED SHE HAS BEEN PAIN FREE SINCE THEN. PT MEDICATED WITH TYLENOL AND CARB/LEVO PRIOR TO DIALYSIS WELL SCHEDULED MEDS. PT HAS SPENT THE DAY FLOATED ON PILLOWS IN THE BED WITH A HEATING PAD UNDER THE LEFT FLANK, UP IN THE CHAIR FOR MEALS AND BACK TO BED WITH HER LEGS ELEVATED ON PILLOWS. +3 EDEMA NOTED AT THE START OF THE SHIFT, +2 AFTER HER DIALYSIS. KEEPING HER FEET ELEVATED HAS REDUCED HER EDEMA FURTHER STILL. PT STATES SHE HAS NO PAIN AND FREQUENTLY WILL CALL OUT FOR THE NURSE TO TELL THE STAFF "ASK ME ABOUT MY PAIN; IT'S ZERO."
--- NOTE | 2019-12-31 03:40 | NUR ---
SUMMARY PT HAS BEEN RESTING QUIETLY WITH OCCASIONAL INTERRUPTIONS TO GO TO THE BATHROOM. VOIDING - I/O MONITORED. ALERT AND ORIENTED, RECEIVING MEDICATIONS FOR RESTLESS LEG SYNDROME AND DISCOMFORT. CALL LIGHT IN REACH.
[2019-12-31 08:25] LABS: BASOPHILS ABSOLUTE AUTO 0.08 K/mm3 (0.00-0.23); BASOPHILS PERCENT AUTO 1 % (0-2); EOSINOPHILS ABSOLUTE AUTO 0.17 K/mm3 (0.00-0.68); EOSINOPHILS PERCENT AUTO 1 % (0-6); Hemoglobin 9.3 g/dL (11.5-16.0); IMMATURE GRAN ABSOLUTE AUTO 0.19 K/mm3 (0.00-0.10); IMMATURE GRAN PERCENT AUTO 2 % (0-1); LYMPHOCYTES ABSOLUTE AUTO 1.55 K/mm3 (0.84-5.20); LYMPHOCYTES PERCENT AUTO 13 % (21-46); MONOCYTES ABSOLUTE AUTO 0.94 K/mm3 (0.16-1.47); MONOCYTES PERCENT AUTO 8 % (4-13); Mean Corpuscular HGB 27.5 pg (26.0-34.0); Mean Corpuscular Volume 89 fL (80-100); Mean Platelet Volume 9.1 fL (9.1-12.4); NEUTROPHILS ABSOLUTE AUTO 9.15 K/mm3 (1.96-9.15); NEUTROPHILS PERCENT AUTO 76 % (41-73); Platelet Count 348 K/mm3 (150-400); RDW Coefficient Variation 15.3 % (11.7-14.2); RDW Standard Deviation 46.7 fL (35.1-46.3); Red Blood Cell Count 3.38 M/mm3 (3.80-5.20); White Blood Cell Count 12.08 K/mm3 (4.00-11.30)
[2019-12-31 08:38] LABS: Albumin, Blood 2.8 g/dL (3.4-5.0); Anion Gap 6 mmol/L (6-16); Blood Urea Nitrogen 36 mg/dL (8-24); Bun/Creatinine Ratio 19.3 (12.0-20.0); CO2, Blood 34 mmol/L (21-32); Calcium, Blood 8.5 mg/dL (8.5-10.1); Chloride, Blood 98 mmol/L (98-108); Creatinine, Blood 1.87 mg/dL (0.40-1.00); Glomerular Filtration Rate 28 (60-); Glucose, Blood 245 mg/dL (70-99); Phosphorus, Blood 1.6 mg/dL (2.5-4.9); Potassium, Blood 3.2 mmol/L (3.5-5.5); Sodium, Blood 138 mmol/L (136-145)
[2019-12-31] MEDS ORDERED: SODBIC650 PO (11:41)
[2019-12-31] MEDS ORDERED: ROPI.25 PO (11:41)
[2019-12-31] MEDS ORDERED: CIPR500 PO (11:43)
[2019-12-31] MEDS ORDERED: POTA10T PO (11:43)
--- NOTE | 2019-12-31 13:36 | NUR ---
SUMMARY/DISCHARGE PT DISCHARGED TO HOME, AGRICULTURE SALES ACCOUNT MANAGER SET UP DIALYSIS INTAKE FOR TOMORROW, AND TRANSPORTATION TO THERE, FOLLOW UP MADE WITH ONCOLOGY FOR TUESDAY, ATTEMPTED TO CALL UROLOGY BUT CANNOT GET THROUGH, ATTEMPTED TO CALL PCP FOR FOLLOW UP BUT CANNOT GET THROUGH, SPOKE WITH AGRICULTURE SALES ACCOUNT MANAGER, THEY CONTACTED DR PRASAD'S OFFICE AND THEY WILL BE FOLLOWING UP WITH THE UROLOGY REFERRAL FOR THE PATIENT, PT WAITING FOR HER RIDE CURRENTLY
--- NOTE | 2019-12-31 14:46 | NUR ---
PT TAKEN OUT SAFELY VIA WHELCHAIR
[2020-01-02 14:09] LABS: A/G RATIO 0.9 (0.7-1.7); ALBUMIN 2.8 g/dL (2.9-4.4); ALPHA-1-GLOBULIN 0.4 g/dL (0.0-0.4); BETA GLOBULIN 0.9 g/dL (0.7-1.3); GAMMA GLOBULIN 0.9 g/dL (0.4-1.8); GLOBULIN, TOTAL 3.2 g/dL (2.2-3.9); IMMUNOGLOBULIN A, QN, SERUM 243 mg/dL (64-422); IMMUNOGLOBULIN G, QN, SERUM 1038 mg/dL (586-1602); IMMUNOGLOBULIN M, QN, SERUM 54 mg/dL (26-217); M-SPIKE Not Observed g/dL (Not Observed)
[2020-01-03 17:10] LABS: M-SPIKE, % Not Observed % (Not Observed); PROTEIN,TOTAL,URINE 81.4 mg/dL (Not Estab.)
== END 2019-12-31 13:47 | disposition home health service (06) | DRG 674 ==
LOC: ER 08:05 → MEDS 13:40 → ENPENDDIS 12-31 10:50 → MEDS 12-31 13:47
PROVIDERS: Emergency Medicine; Internal Medicine; Nurse Practitioner Acute Care; ADMIT Internal Medicine
PROC: 0T9330Z Drainage of Right Kidney Pelvis with Drainage Device, Percutaneous Approach (ICD-10-PCS; principal; 2019-12-24)
PROC: 0T763DZ Dilation of Right Ureter with Intraluminal Device, Percutaneous Approach (ICD-10-PCS; 2019-12-24)
PROC: 0JH63XZ Insertion of Tunneled Vascular Access Device into Chest Subcutaneous Tissue and Fascia, Percutaneous Approach (ICD-10-PCS; 2019-12-25)
PROC: 02HV33Z Insertion of Infusion Device into Superior Vena Cava, Percutaneous Approach (ICD-10-PCS; 2019-12-25)
PROC: B5181ZA Fluoroscopy of Superior Vena Cava using Low Osmolar Contrast, Guidance (ICD-10-PCS; 2019-12-25)
PROC: 5A1D70Z Performance of Urinary Filtration, Intermittent, Less than 6 Hours Per Day (ICD-10-PCS; 2019-12-25)
PROC: 30233N1 Transfusion of Nonautologous Red Blood Cells into Peripheral Vein, Percutaneous Approach (ICD-10-PCS; 2019-12-30)
DX: N17.9 Acute kidney failure, unspecified (principal); I12.0 Hypertensive chronic kidney disease with stage 5 chronic kidney disease or end stage renal disease; E87.2 Acidosis; C79.51 Secondary malignant neoplasm of bone; N39.0 Urinary tract infection, site not specified; N18.6 End stage renal disease; N13.30 Unspecified hydronephrosis; E78.5 Hyperlipidemia, unspecified; G25.81 Restless legs syndrome; Z79.84 Long term (current) use of oral hypoglycemic drugs; Z66 Do not resuscitate; E86.0 Dehydration; N94.89 Other specified conditions associated with female genital organs and menstrual cycle; N13.5 Crossing vessel and stricture of ureter without hydronephrosis; B95.2 Enterococcus as the cause of diseases classified elsewhere; Z99.2 Dependence on renal dialysis; E11.22 Type 2 diabetes mellitus with diabetic chronic kidney disease
CPT/HCPCS: 0097U; 36415; 36430; 36558; 50695; 71045; 72195; 74176; 74181; 76770; 76830; 76937; 80048; 80053; 80069; 80074; 81001; 82550; 82570; 82607; 82728; 82746; 82784; 82947; 83540; 83550; 83605; 83690; 83735; 83883; 84100; 84155; 84156; 84165; 84166; 84300; 84443; 84484; 84550; 85014; 85018; 85025; 85027; 85045; 86304; 86317; 86334; 86850; 86900; 86901; 86923; 87040; 87077; 87086; 87186; 93005; 93010; 93306; 96361; 96365; 96375; 97110; 97116; 97161; 97165; 97530; 97535; 99152; 99285-25; A9270; A9270-GY; C1729; C1750; C1751; C1769; C1887; C1894; C2617; J0696; J0881; J1644; J2060; J2250; J2405; J2550; J3010; J7030; J7040; J7120; P9016; P9612; Q9967

== ENCOUNTER 2020-01-12 07:10 | Emergency (ER) | payer OTHER ==
[~2020-01-12] VITALS: Ht 170.2 cm; Wt 51.3 kg
[~2020-01-12 07:10] MED LIST: CIPR500 PO; Glucophage 850850 MG PO; POTA10T PO; PRAVASTATIN SOD10 M2 PO; ROPI.25 PO; SODBIC650 PO
== END 2020-01-12 08:21 | disposition home or self-care (01) ==
LOC: ER 07:10
DX: Z43.6 Encounter for attention to other artificial openings of urinary tract (principal); E11.9 Type 2 diabetes mellitus without complications; Z88.5 Allergy status to narcotic agent; Z88.6 Allergy status to analgesic agent; Z79.899 Other long term (current) drug therapy; Z79.84 Long term (current) use of oral hypoglycemic drugs
CPT/HCPCS: 99282

== ENCOUNTER → 2020-01-14 | Outpatient (CLI) | payer MEDICARE ==
[2020-01-14 16:05] LABS: Source, Urine Voided
[2020-01-14 16:13] LABS: Bilirubin, Urine Neg (Neg); Blood, Urine 4+ (Neg); Glucose Qualitative, Urine 4+ (Neg); Ketones, Urine Neg (Neg); Leukocyte Esterase, Urine Neg (Neg); Nitrite, Urine Neg (Neg); Protein, Urine 3+ (Neg); Specific Gravity, Urine 1.015 (1.003-1.022); Urobilinogen, Urine NORM (Normal)
[2020-01-14 16:31] LABS: Appearance, Urine Cloudy (Clear); Color, Urine Pale Yellow (P-Yellow)
[2020-01-14 16:32] LABS: Amorphous Light (0-Heavy); Bacteria Mod /hpf; Squamous Epithelial Cells Few /hpf (Few); White Blood Cells, Urine 0-2 /hpf (0-5)
[2020-01-14 16:51] LABS: Creatinine, Urine Random 38.2 mg/dL (27.00-270.00); Protein, Urine Random 109.7 mg/dL (0.0-11.9)
== END | disposition home or self-care (01) ==
LOC: LAB 14:40 → LAB SHORT 14:40
PROVIDERS: Internal Medicine
DX: N18.3 Chronic kidney disease, stage 3 (moderate) (principal)
CPT/HCPCS: 81001; 82570; 84156

== ENCOUNTER 2020-01-23 11:32 | Emergency (ER) | payer OTHER ==
[~2020-01-23] VITALS: Ht 170.2 cm; Wt 50.8 kg
[2020-01-23] MEDS ORDERED: FUROSEMIDE20 MG PO (11:45)
== END 2020-01-23 12:32 | disposition home or self-care (01) ==
LOC: ER 11:32
DX: N99.522 Malfunction of incontinent external stoma of urinary tract (principal); R03.0 Elevated blood-pressure reading, without diagnosis of hypertension; E11.9 Type 2 diabetes mellitus without complications; E78.5 Hyperlipidemia, unspecified; Z88.5 Allergy status to narcotic agent; Z88.6 Allergy status to analgesic agent; Z88.8 Allergy status to other drugs, medicaments and biological substances; Z79.899 Other long term (current) drug therapy; Z79.84 Long term (current) use of oral hypoglycemic drugs
CPT/HCPCS: 99282

== ENCOUNTER 2020-03-10 02:45 | Inpatient (IN) | payer MEDICARE ==
[~2020-03-10] VITALS: Ht 170.2 cm; Wt 47.0 kg
[~2020-03-10 02:45] MED LIST changes: +FUROSEMIDE20 MG PO; -PRAVASTATIN SOD10 M2 PO; +PRAVASTATIN SOD10 MG PO; -ROPI.25 PO; +ROPI1 PO
[2020-03-10 03:47] LABS: BASOPHILS ABSOLUTE AUTO 0.06 K/mm3 (0.00-0.23); BASOPHILS PERCENT AUTO 1 % (0-2); EOSINOPHILS ABSOLUTE AUTO 0.19 K/mm3 (0.00-0.68); EOSINOPHILS PERCENT AUTO 2 % (0-6); Hematocrit 33.7 % (33.0-51.0); Hemoglobin 10.5 g/dL (11.5-16.0); IMMATURE GRAN ABSOLUTE AUTO 0.07 K/mm3 (0.00-0.10); IMMATURE GRAN PERCENT AUTO 1 % (0-1); LYMPHOCYTES ABSOLUTE AUTO 0.94 K/mm3 (0.84-5.20); LYMPHOCYTES PERCENT AUTO 10 % (21-46); MONOCYTES ABSOLUTE AUTO 0.78 K/mm3 (0.16-1.47); MONOCYTES PERCENT AUTO 8 % (4-13); Mean Corpuscular HGB Conc 31.2 g/dL (31.5-36.5); Mean Corpuscular Volume 87 fL (80-100); Mean Platelet Volume 9.6 fL (9.1-12.4); NEUTROPHILS ABSOLUTE AUTO 7.72 K/mm3 (1.96-9.15); NEUTROPHILS PERCENT AUTO 79 % (41-73); Platelet Count 353 K/mm3 (150-400); RDW Coefficient Variation 14.3 % (11.7-14.2); RDW Standard Deviation 45.5 fL (35.1-46.3); Red Blood Cell Count 3.89 M/mm3 (3.80-5.20); White Blood Cell Count 9.76 K/mm3 (4.00-11.30)
[2020-03-10 04:01] LABS: Source, Urine Catheter
[2020-03-10 04:03] LABS: Bilirubin, Urine Neg (Neg); Blood, Urine 5+ (Neg); Glucose Qualitative, Urine Neg (Neg); Ketones, Urine Neg (Neg); Leukocyte Esterase, Urine 3+ (Neg); Nitrite, Urine Neg (Neg); Protein, Urine 2+ (Neg); Urobilinogen, Urine NORM (Normal)
[2020-03-10 04:05] LABS: Albumin, Blood 3.5 g/dL (3.4-5.0); Albumin/Globulin Ratio 0.8 (0.8-1.8); Bilirubin, Total 0.5 mg/dL (0.1-1.0); Bun/Creatinine Ratio 28.7 (12.0-20.0); Calcium, Blood 9.8 mg/dL (8.5-10.1); Creatinine, Blood 2.02 mg/dL (0.40-1.00); Globulin, Blood 4.4 g/dL (2.2-4.0); Potassium, Blood 4.1 mmol/L (3.5-5.5); Total Protein, Blood 7.9 g/dL (6.4-8.2)
[2020-03-10 04:23] LABS: Appearance, Urine Hazy (Clear); Color, Urine Pale Yellow (P-Yellow)
[2020-03-10 04:24] LABS: Bacteria Many /hpf; Squamous Epithelial Cells Rare /hpf (Few); White Blood Cells, Urine 50-100 /hpf (0-5)
--- NOTE | 2020-03-10 07:06 | NUR ---
PATIENT ARRIVED TO THE UNIT VIA STRETCHER AT 0549. PATIENT IS ALERT AND ORIENTED X4. ABLE TO AMBULATE TO THE BATHROOM AND BACK WITH SLIGHT ASSISTANCE. PATIENT HAS A BANDAGE ON HER RIGHT FLANK OVER A NEPHROSTOMY SITE, OTHERWISE NO SKIN ISSUES. IV PATENT AND INFUSING WITH NORMAL SALINE AT 75 ML/HR. BED IN LOWEST POSITION WITH WHEELS LOCKED. CALL LIGHT WITHIN REACH. REPORT GIVEN TO ONCOMING RN.
[2020-03-10 14:49] LABS: Bun/Creatinine Ratio 27.1 (12.0-20.0); Creatinine, Blood 1.88 mg/dL (0.40-1.00)
--- NOTE | 2020-03-10 18:27 | NUR ---
SUMM- PT A/O X4, USES CALL LIGHT GETS UP FREQ SBA WITH W/C TO BATHROOM, SMALL FREQ VOIDS. HAS PAIN IN R FLANK EVERY TIME SHE MOVES OR CHANGES POSITION. PT DECLINES ANY NARC PAIN MED BECAUSE SHE STATES SHE IS VERY SENSITIVE TO NARCS. PAIN HAS LESSENED TOWARDS THE END OF THE DAY, AND IS RELEIVED EVERY TIME SHE GETS UP THAT SHE ISNT IN A PAIN. TOLERATING FOOD AND FLUIDS, NO NAUSEA. VSS, NO FEVER. HAD ABX YESTERDAY AND DUE AGAIN TUES. BLOOD SUGARS MILDLY ELEVATED, ON LOW SSI. DR NAVAS CONSULTED AFTER RENAL US SHOWED MOD HYDRONEPHROSIS ON THE RIGHT. HE CAME TO VISIT WITH PT 1800, AND SPOKE WITH RN STATING HE WOULD CHECK THE TUBE AND LIKELY READJUST TUBE TUES AFTER BREAKFAST AROUND [phone]. NEPH TUBE SITE CLEANDE AND CHANGED
--- NOTE | 2020-03-11 04:11 | NUR ---
SHIFT SUMMARY- PT. A&O, INDEP IN ROOM. C/O RESTLESS LEGS, SCHEDULED MEDS GIVEN PER EMAR WITH MINIMAL RELIEF. PT. ALSO C/O HAVING RT SIDED FLANK PAIN. PAIN MEDICATION OFFERED SEVERAL TIMES T/O THE SHIFT. PT. REFUSING ANY PAIN MEDICATION AND REFUSING TO SIT OR LIE DOWN IN BED. STATES BED IS UNCOMFORTABLE. PT. RESTLESS AMBULATING AROUND IN ROOM AND SITTING ON/OFF IN A CHAIR. NO ACUTE DISTRESS NOTED. PT. HAS BEEN VOIDING IN BATHROOM W/MINIMAL ASSISTANCE, NEPHROSTOMY TUBE N PLACE. PLAN FOR SCHEDULED NEPHROSOTOMY TUBE ADJUSTMENT W/DR. NAVAS IN THE AM. CALL LIGHT WITHIN REACH AND SIDE RAILS UP X2. WILL CONT TO MONITOR.
[2020-03-11 05:41] LABS: BASOPHILS PERCENT AUTO 1 % (0-2); EOSINOPHILS ABSOLUTE AUTO 0.23 K/mm3 (0.00-0.68); EOSINOPHILS PERCENT AUTO 3 % (0-6); Hematocrit 31.5 % (33.0-51.0); Hemoglobin 9.7 g/dL (11.5-16.0); IMMATURE GRAN ABSOLUTE AUTO 0.08 K/mm3 (0.00-0.10); IMMATURE GRAN PERCENT AUTO 1 % (0-1); LYMPHOCYTES ABSOLUTE AUTO 1.22 K/mm3 (0.84-5.20); LYMPHOCYTES PERCENT AUTO 14 % (21-46); MONOCYTES ABSOLUTE AUTO 0.93 K/mm3 (0.16-1.47); MONOCYTES PERCENT AUTO 10 % (4-13); Mean Corpuscular HGB 26.9 pg (26.0-34.0); Mean Corpuscular HGB Conc 30.8 g/dL (31.5-36.5); Mean Corpuscular Volume 88 fL (80-100); Mean Platelet Volume 9.6 fL (9.1-12.4); NEUTROPHILS PERCENT AUTO 71 % (41-73); Platelet Count 317 K/mm3 (150-400); RDW Coefficient Variation 14.3 % (11.7-14.2); RDW Standard Deviation 46.1 fL (35.1-46.3); White Blood Cell Count 8.96 K/mm3 (4.00-11.30)
[2020-03-11 06:05] LABS: Albumin, Blood 3.2 g/dL (3.4-5.0); Albumin/Globulin Ratio 0.7 (0.8-1.8); Bilirubin, Total 0.4 mg/dL (0.1-1.0); Bun/Creatinine Ratio 29.7 (12.0-20.0); Calcium, Blood 9.1 mg/dL (8.5-10.1); Creatinine, Blood 1.58 mg/dL (0.40-1.00); Globulin, Blood 4.5 g/dL (2.2-4.0); Potassium, Blood 4.2 mmol/L (3.5-5.5); Total Protein, Blood 7.7 g/dL (6.4-8.2)
[2020-03-11 13:40] LABS: Percent Saturation 10.5 % (15.0-50.0)
[2020-03-12 05:26] LABS: Bun/Creatinine Ratio 26.6 (12.0-20.0); Calcium, Blood 9.2 mg/dL (8.5-10.1); Creatinine, Blood 1.39 mg/dL (0.40-1.00); Magnesium, Blood 1.8 mg/dL (1.6-2.4); Potassium, Blood 4.1 mmol/L (3.5-5.5)
--- NOTE | 2020-03-12 07:20 | NUR ---
WEB CONTENT DEVELOPER SUMMARY Patient awake most of night sitting in chair and up and down to the bathrooom. large volume of dilute appearing urine. bilateral flank pain resolved with 0.25mcg fentanyl X1. Patient unable to sleep in bed as mattress too soft to support her comfort needs.
--- NOTE | 2020-03-12 15:52 | NUR ---
PATIENT HAD HER UROSTOMY TUBE REPLACED THIS MORNING AND CAME BACK FEELING GREAT, READY TO EAT HER BREAKFAST. SHE STATED FEELING SO MUCH BETTER HAVING THE PROCEDURE DONE. SHE HAS SLEPT QUITE A BIT TODAY. SHE HAS BEEN PLEASANT AND COOPERATIVE WITH STAFF. DENIES PAIN AND DISCOMFORT. WILL CONTINUE TO MONITOR AND PROVIDE CARE NEEDED.
--- NOTE | 2020-03-12 19:20 | NUR ---
ASSUMED CARE RECEIVED REPORT FROM ROSANGELA LEON. ASSUMED CARE OF PT. RESTING COMFORTABLY AT THIS TIME, NO S/S ACUTE DISTRESS NOTED. PLEASANT AND COOPERATIVE. DENIES NEEDS AT THIS TIME. CALL LIGHT, POSSESSIONS IN REACH. WILL CONTINUE TO MONITOR.
[2020-03-13 05:03] LABS: Bun/Creatinine Ratio 26.3 (12.0-20.0); Creatinine, Blood 1.37 mg/dL (0.40-1.00); Potassium, Blood 4.4 mmol/L (3.5-5.5)
--- NOTE | 2020-03-13 07:21 | NUR ---
SHIFT SUMMARY PT HAD AN UNEVENTFUL NIGHT. NO ACUTE CHANGES IN CONDITION NOTED. RT NEPHROSTOMY DRSG C/D/I, DRAINING WELL. TUBING KEPT FREE OF KINKS, BRACED TO PT'S BODY TO PREVENT FROM PULLING. PT TOLERATING WELL, MANAGING CARE INDEPENDENTLY. SLEPT IN RECLINER T/O NIGHT, ENCOURAGED TO ELEVATE BLE TO DECREASE EDEMA, PT STATED IT WAS COMFORTABLE FOR HER. NO C/O PAIN OR GI UPSET NOTED, UNTIL SHIFT CHANGE THIS AM. MEDICATED PER EMAR. PT ATTEMPTING TO REST AT THIS TIME. CALL LIGHT, POSSESSIONS IN REACH. REPORT GIVEN TO DAY RN.
[2020-03-13] MEDS ORDERED: ACET325 PO (10:16)
[2020-03-13] MEDS ORDERED: AMLO5 PO (10:17)
[2020-03-13] MEDS ORDERED: CEFP200 PO (10:18)
[2020-03-13] MEDS ORDERED: FERSU300 PO (10:20)
[2020-03-13] MEDS ORDERED: HUMALOG KW100 UNIT/1 SC (10:22)
[2020-03-13] MEDS ORDERED: ONDA4ODT MM (10:22)
[2020-03-13] MEDS ORDERED: PROBIOTIC250 MG PO (10:23)
--- NOTE | 2020-03-13 10:54 | NUR ---
DISCHARGE INSTRUCTIONS GIVEN TO PATIENT ALONG WITH EDUCATIONAL MATERIAL REGARDING MEDICATION AND HER NEPHROSTOMY TUBE. IV REMOVED AND TELE DISCONTINUED AND RETURNED TO PCU. PATIENT BEING ASSISTED INTO THE SHOWER AT THIS TIME BY PUBLIC HEALTH AIDE. PATIENT HAS A RIDE LINED UP FOR DISCHARGE HOME.
--- NOTE | 2020-03-13 13:36 | NUR ---
PATIENT DISCHARGED HOME AT APPROX 1255. PATIENT ESCORTED BY COMMUNICATIONS MANAGER OUT TO MEET HER TRANSPORTED.
[2020-04-01] MEDS ORDERED: Keflex250 MG PO (22:44)
[2020-04-02] MEDS ORDERED: BACTRIM 400-801 EACH PO (02:06)
[2020-04-11] MEDS ORDERED: FUROSEMIDE20 MG PO (13:13)
[2020-04-11] MEDS ORDERED: OXYCODONE-ACET1 EAC3 PO (13:13)
[2020-04-11] MEDS ORDERED: SPIRONOLACTONE25 MG PO (13:14)
[2020-04-11] MEDS ORDERED: TRESIBA FL100 UNIT/2 SC (13:17)
[2020-04-11] MEDS ORDERED: LOSARTAN POTASS25 M2 PO (13:19)
[2020-04-11] MEDS ORDERED: SODBIC650 PO (13:20)
[2020-04-11] MEDS ORDERED: MULTI VITAMIN1 EACH PO (13:20)
[2020-04-18] MEDS ORDERED: LEVFLO500 (12:02)
== END 2020-03-13 12:57 | disposition home or self-care (01) | DRG 699 ==
LOC: ER 02:45 → MEDS 02:46
PROVIDERS: Emergency Medicine; Internal Medicine; ADMIT Internal Medicine
PROC: 0TP97DZ Removal of Intraluminal Device from Ureter, Via Natural or Artificial Opening (ICD-10-PCS; principal; 2020-03-12)
PROC: 0T767DZ Dilation of Right Ureter with Intraluminal Device, Via Natural or Artificial Opening (ICD-10-PCS; 2020-03-12)
PROC: BT111ZZ Fluoroscopy of Right Kidney using Low Osmolar Contrast (ICD-10-PCS; 2020-03-12)
DX: T83.192A Other mechanical complication of indwelling ureteral stent, initial encounter (principal); N17.9 Acute kidney failure, unspecified; C79.51 Secondary malignant neoplasm of bone; N12 Tubulo-interstitial nephritis, not specified as acute or chronic; N13.30 Unspecified hydronephrosis; G25.81 Restless legs syndrome; E78.5 Hyperlipidemia, unspecified; N18.3 Chronic kidney disease, stage 3 (moderate); N94.89 Other specified conditions associated with female genital organs and menstrual cycle; E11.22 Type 2 diabetes mellitus with diabetic chronic kidney disease; D63.1 Anemia in chronic kidney disease; Z79.4 Long term (current) use of insulin; I12.9 Hypertensive chronic kidney disease with stage 1 through stage 4 chronic kidney disease, or unspecified chronic kidney disease; B96.89 Other specified bacterial agents as the cause of diseases classified elsewhere
CPT/HCPCS: 36415; 50435; 76770; 80048; 80053; 81001; 82728; 82947; 83540; 83550; 83605; 83735; 85025; 87040; 87077; 87086; 87186; 96361; 96365; 96372; 96376; 99152; 99285-25; A9270-GY; C1729; C1769; G0378; J0696; J1650; J2250; J2405; J3010; J7030; J7040; P9612; Q9967

== ENCOUNTER 2020-04-23 16:54 | Inpatient (IN) | payer MEDICARE, OTHER ==
[~2020-04-23] VITALS: Ht 170.2 cm; Wt 42.2 kg
[~2020-04-23 16:54] MED LIST changes: +ACET325 PO; +AMLO5 PO; +BACTRIM 400-801 EACH PO; +CEFP200 PO; +FERSU300 PO; +HUMALOG KW100 UNIT/1 SC; +Keflex250 MG PO; +LEVFLO500; +LOSARTAN POTASS25 M2 PO; +MULTI VITAMIN1 EACH PO; +ONDA4ODT MM; +OXYCODONE-ACET1 EAC3 PO; +PROBIOTIC250 MG PO; +SPIRONOLACTONE25 MG PO; +TRESIBA FL100 UNIT/2 SC
[2020-04-23] MEDS ORDERED: AMOX250 PO (17:16)
[2020-04-23] MEDS ORDERED: CEFP200 (17:16)
[2020-04-23] MEDS ORDERED: AMLODIPINE BESYL5 MG PO (18:30)
[2020-04-23 18:47] LABS: Source, Urine Catheter
[2020-04-23 18:52] LABS: Bilirubin, Urine Neg (Neg); Blood, Urine 3+ (Neg); Glucose Qualitative, Urine Neg (Neg); Ketones, Urine 2+ (Neg); Leukocyte Esterase, Urine Neg (Neg); Nitrite, Urine Neg (Neg); Protein, Urine 2+ (Neg); Specific Gravity, Urine 1.025 (1.003-1.022); Urobilinogen, Urine NORM (Normal)
[2020-04-23 18:54] LABS: Appearance, Urine Clear (Clear); Color, Urine Yellow (P-Yellow)
[2020-04-23 19:05] LABS: Bacteria Many /hpf; Mucus Light (0-Heavy); Squamous Epithelial Cells Mod /hpf (Few)
[2020-04-23 19:11] LABS: Albumin, Blood 2.3 g/dL (3.4-5.0); Albumin/Globulin Ratio 0.6 (0.8-1.8); Bilirubin, Total 0.6 mg/dL (0.1-1.0); Bun/Creatinine Ratio 47.2 (12.0-20.0); Calcium, Blood 10.3 mg/dL (8.5-10.1); Creatinine, Blood 1.63 mg/dL (0.40-1.00); Potassium, Blood 5.4 mmol/L (3.5-5.5); Total Protein, Blood 6.3 g/dL (6.4-8.2); Troponin I 0.156 ng/mL (0.000-0.040)
[2020-04-23 19:41] LABS: Hemoglobin 11.6 g/dL (11.5-16.0); Mean Corpuscular HGB 24.8 pg (26.0-34.0); Mean Corpuscular HGB Conc 29.7 g/dL (31.5-36.5); Mean Corpuscular Volume 84 fL (80-100); NRBC ABSOLUTE 0.79 K/mm3 (0.00-0.02); NRBC Auto 4.5 /100 WBC (0.0-0.2); RDW Coefficient Variation 17.2 % (11.7-14.2); RDW Standard Deviation 50.7 fL (35.1-46.3); Red Blood Cell Count 4.67 M/mm3 (3.80-5.20); White Blood Cell Count 17.63 K/mm3 (4.00-11.30)
[2020-04-23 19:43] LABS: Mean Platelet Volume 10.6 fL (9.1-12.4); Platelet Count 192 K/mm3 (150-400)
[2020-04-23 19:46] LABS: BAND PERCENT MAN 5 % (0-8); BASOPHILS ABSOLUTE MAN 0.17 K/mm3 (0.00-0.23); BASOPHILS PERCENT MAN 1 % (0-2); EOSINOPHILS PERCENT MAN 0 % (0-6); LYMPHOCYTES PERCENT MAN 4 % (21-46); METAMYELOCYTE ABSOLUTE MAN 0.17 K/mm3 (0.00-0.00); METAMYELOCYTE PERCENT MAN 1 % (0-0); MONOCYTES ABSOLUTE MAN 0.35 K/mm3 (0.16-1.47); MONOCYTES PERCENT MAN 2 % (4-13); NEUTROPHILS ABSOLUTE MAN 16.21 K/mm3 (1.96-9.15); SEG NEUTROPHILS PERCENT MAN 87 % (41-73); TOTAL CELLS COUNTED 100
[2020-04-24 04:32] LABS: Bun/Creatinine Ratio 45.5 (12.0-20.0); Calcium, Blood 9.7 mg/dL (8.5-10.1); Creatinine, Blood 1.89 mg/dL (0.40-1.00); Potassium, Blood 5.2 mmol/L (3.5-5.5); Troponin I 0.242 ng/mL (0.000-0.040)
== END 2020-04-26 06:10 | DRG 291 ==
LOC: ER 16:54 → PCU 20:24 → MEDS 04-25 14:46
PROVIDERS: Emergency Medicine; ADMIT Internal Medicine
DX: I13.0 Hypertensive heart and chronic kidney disease with heart failure and stage 1 through stage 4 chronic kidney disease, or unspecified chronic kidney disease (principal); J96.01 Acute respiratory failure with hypoxia; I50.33 Acute on chronic diastolic (congestive) heart failure; E43 Unspecified severe protein-calorie malnutrition; C90.00 Multiple myeloma not having achieved remission; R64 Cachexia; Z68.1 Body mass index [BMI] 19.9 or less, adult; C41.9 Malignant neoplasm of bone and articular cartilage, unspecified; C56.2 Malignant neoplasm of left ovary; Z51.5 Encounter for palliative care; Z99.81 Dependence on supplemental oxygen; Z20.828 Contact with and (suspected) exposure to other viral communicable diseases; Z79.4 Long term (current) use of insulin; E11.22 Type 2 diabetes mellitus with diabetic chronic kidney disease; E78.5 Hyperlipidemia, unspecified; G25.81 Restless legs syndrome; R62.7 Adult failure to thrive; Z93.6 Other artificial openings of urinary tract status; R91.8 Other nonspecific abnormal finding of lung field; N18.3 Chronic kidney disease, stage 3 (moderate)
CPT/HCPCS: 36415; 71045; 71260; 80048; 80053; 81001; 82947; 83880; 84484; 85025; 87077; 87086; 87186; 93005; 93010; 94760; 94762; 96365; 96366; 96375; 99285-25; A9270-GY; J1940; J2543; J7050; Q9967; U0002